=== PATIENT | female | born 1965 | race Caucasian/White ===

== ENCOUNTER 2020-11-07 13:51 | Day surgery (SDC) | payer OTHER ==
[2020-11-07] MEDS ORDERED: Xylocaine 1% Vial 30 ML PF IJ ONE (13:52)
[2020-11-07] MEDS ORDERED: BUPIVACAINE 0.5% VIAL IJ ONE (13:52)
[2020-11-07] MEDS ORDERED: Depo-Medrol 40 MG/ML IM ONE (13:52)
--- NOTE | 2020-11-07 16:50 | XRAY ---
Indication: Right SI joint injection. Intraoperative fluoroscopy was provided for 11 seconds. 2 digital spot images submitted for interpretation demonstrates posterior needle tip projecting over the inferior right SI joint. Correlate with intraoperative findings/report.
--- NOTE | 2020-11-07 17:03 | XRAY ---
11 seconds of fluoroscopy was used in surgery for a right SI joint injection.
== END 2020-11-07 15:50 | disposition home or self-care (01) ==
LOC: SDC-PAIN 13:51
PROVIDERS: ATTEND Psychiatry & Neurology Pain Medicine
DX: M46.1 Sacroiliitis, not elsewhere classified (principal); E11.9 Type 2 diabetes mellitus without complications; K21.9 Gastro-esophageal reflux disease without esophagitis; F41.8 Other specified anxiety disorders; Z86.19 Personal history of other infectious and parasitic diseases; Z79.899 Other long term (current) drug therapy
CPT/HCPCS: 27096; 72020; 77002; 82947; J1030; J2001; G0260

== ENCOUNTER 2021-10-30 11:23 | Day surgery (SDC) | payer OTHER ==
[2021-10-30] MEDS ORDERED: Xylocaine 1% Vial 30 ML PF IJ ONE (11:24)
[2021-10-30] MEDS ORDERED: Depo-Medrol 40 MG/ML IM ONE (11:24)
[2021-10-30] MEDS ORDERED: BUPIVACAINE 0.5% VIAL IJ ONE (11:24)
--- NOTE | 2021-10-30 16:17 | XRAY ---
Indication: Right SI joint injection. Intraoperative fluoroscopy provided for 13 seconds. 2 digital spot image submitted for interpretation demonstrates posterior needle tip projecting over the inferior right SI joint. Correlate with intraoperative findings/report.
--- NOTE | 2021-10-30 16:19 | XRAY ---
Indication: Right greater trochanter bursa injection. Intraoperative fluoroscopy provided for 16 seconds. Single digital spot image obtained prone submitted for interpretation demonstrates needle tip lateral to the right greater trochanter. Small amount of contrast injected for needle tip placement. Correlate with intraoperative findings/report.
--- NOTE | 2021-10-30 16:28 | XRAY ---
16 seconds of fluoroscopy was used in surgery for a right greater trochanteric bursa injection.
--- NOTE | 2021-10-30 16:37 | XRAY ---
13 seconds of fluoroscopy was used in surgery for a right sacroiliac joint injection.
== END 2021-10-30 14:20 | disposition home or self-care (01) ==
LOC: SDC-PAIN 11:23
PROVIDERS: ATTEND Psychiatry & Neurology Pain Medicine
DX: M46.1 Sacroiliitis, not elsewhere classified (principal); M70.61 Trochanteric bursitis, right hip; E11.9 Type 2 diabetes mellitus without complications; Z79.899 Other long term (current) drug therapy
CPT/HCPCS: 20610; 27096; 72020; 73501; 77002; 82947; J1030; J2001; Q9966; G0260

== ENCOUNTER 2025-08-14 07:46 | Emergency (ER) | payer OTHER ==
--- NOTE | 2025-08-14 08:14 | ERPHSYRPT ---
- History of Present Illness Time Seen by Provider: 08/14/25 08:00 Source: patient Physician History: Patient comes to the emergency room due to back pain, Patient has been dealing with this back pain for a long period of time patient sees [facility] for her back pain has history of sciatica she is supposed to get surgery but due to her A1c being elevated she cannot get that surgery done. Patient denies any trauma to her back she denies any falls has some radiculopathy down the right si de of herLeg. Timing/Duration: other (Years) Quality: sharp Back Pain Location: lumbar spine Severity of Pain-Max: moderate Severity of Pain-Current: moderate Modifying Factors: Improves With: movement Home Medications: Albuterol 8 gm Mdi Hfa [Ventolin Hfa MDI] 2 puffs IH Q4-6HPRN PRN 08/14/25 [History] Fluoxetine HCl 10 mg [Prozac 10 mg] 1 tab PO DAILY 08/14/25 [History] Insulin Glargine [Lantus Insulin] 75 units SQ HS 08/14/25 [History] Oxybutynin Chloride Xl 5 mg [Ditropan XL 5 MG] 1 tab PO DAILY 08/14/25 [History] - Review of Systems Constitutional: No Fever, No Chills Respiratory: No Cough, No Dyspnea Cardiac: No Chest Pain, No Edema, No Syncope Abdominal/Gastrointestinal: No Abdominal Pain, No Nausea, No Vomiting, No Diarrhea Musculoskeletal: Back Pain Neurological: No Dizziness, No Focal Weakness, No Sensory Changes - Past Medical History Pertinent Past Medical History: Yes Endocrine Medical History: Diabetes Type II Musculoskeletal History: Osteoarthritis Psycho-Social History: Anxiety, Depression - Past Surgical History Past Surgical History: Yes Female Surgical History: Hysterectomy - Physical Exam General Appearance: mild distress Eye Exam: PERRL/EOMI, eyes nml inspection Respiratory Exam: normal breath sounds, lungs clear, No respiratory distress Cardiovascular Exam: regular rate/rhythm, normal heart sounds Gastrointestinal Exam: soft, No tenderness, No mass Back Exam: decreased range of motion, muscle spasm, No vertebral tenderness Extremity Exam: limited range of motion Neurologic Exam: alert, oriented x 3, cooperative - Progress Progress Note: 08/14/25 08:15 Patient comes to the emergency room due to back pain that is more chronic in nature. No trauma history patient does have some radiculopathy but no saddle seizure no urinary fecal incontinence no signs of cauda equina syndrome this is a chronic pain issue patient has been dealing with she takes nothing for it. Patient has seen orthopedic surgery for it and they are supposed to do surgery on her back but due to her A1c being elevated they cannot perform any surgery patient has had injections on her lower back which has sometimes helped. Patient denies any falls or trauma to her back says this is chronic degenerative issues that has been getting worse. At this time she is advised to follow-up with her orthopedic surgeon in the meantime I am going to start a short course of gabapentin on the patient which patient will need to continue to hopefully help her in the long-term until she can figure out her plan for future surgery along with giving the patient some muscle relaxers to help her she is advised that this might not fix the problem but hopefully it does take the edge off and make her more comfortable. Patient is understanding and agreeable to the plan - Departure Departure Disposition: Home Clinical Impression: Lumbosacral dysfunction Sciatica Qualifiers: Laterality: right Qualified Code(s): M54.31 - Sciatica, right side Condition: Stable Critical Care Time: No Referrals: BETHANY JANSEN MD [Primary Care Provider, [facility]] - Follow up/PCP as directed Instructions: Low Back Pain (DC), Sciatica (DC) Prescriptions: Cyclobenzaprine HCl 10 mg [Cyclobenzaprine 10 MG] 10 mg PO TID #30 tablet Gabapentin 100 mg PO TID #30 cap
[2025-08-14 08:17] VITALS: TEMP 97.9
[2025-08-14] MEDS ORDERED: Norflex 60 MG/2 ML ONE (08:33)
[2025-08-14] MEDS: Norflex 60 MG/2 ML IM ONE (08:34)
[2025-08-14 08:48] VITALS: BP 132/76; PULSE 62; RESP 18; O2SAT 99
== END 2025-08-14 08:49 | disposition home or self-care (01) ==
LOC: ED 07:46
DX: M54.50 Low back pain, unspecified (principal); M54.31 Sciatica, right side; E11.9 Type 2 diabetes mellitus without complications; Z79.4 Long term (current) use of insulin; Z79.899 Other long term (current) drug therapy